=== PATIENT | female | born 1960 | race African-American/Black ===

== ENCOUNTER 2022-08-05 06:43 | Inpatient (IN) ==
[2022-08-05] MEDS ORDERED: methylPREDNISolone SOD SUC 125 MG/2 ML VIAL IV STA (06:52)
[2022-08-05] MEDS ORDERED: ALBUTEROL NEB SOLN 5 MG/ML 20 ML/BOTTLE CONT NEB SCH (07:00)
[2022-08-05 07:21] LABS: Basophils % 0.5 % (0.0-0.8); Eosinophils % 0.3 % (0.00-10.9); Hematocrit 33.7 VOL% (35.7-47.0); Hemoglobin 11.1 GM/DL (12.0-16.0); Immature Granulocytes % 1.1 %; Immature Granulocytes Absolute 0.04 #; Lymphocytes # 1.2 10*3/uL (1.4-4.0); Mean Corpuscular HGB Conc 32.9 GM/DL (32-36); Mean Corpuscular Volume 93.6 FL (87-102); Mean Platelet Volume 10.1 FL (9.6-12.0); Monocytes # 0.6 10*3/uL (0.11-0.8); Monocytes % 15.3 % (1.7-12.7); Neutrophils % 48.8 % (38.7-73.9); Platelet Count 282 T/CUMM (130-400); Red Cell Distribution Width 14.8 % (9.3-17.3); White Blood Count 3.7 T/CUMM (4-12)
[2022-08-05 07:35] LABS: INR 0.9; PT Patient Result 10.4 SECS (10.1-12.1)
[2022-08-05 07:37] LABS: Arterial Base Excess iSTAT 3 MMOL/L (-2.5-2.5); Arterial Bicarbonate iSTAT 24.8 MMOL/L (20-26); Arterial O2 Saturation iSTAT 98 % (95-100); Arterial PCO2 iSTAT 28 MM HG (35-48); Arterial PO2 iSTAT 85 MM HG (80-95); Arterial Total CO2 iSTAT 26 MMO/L (23-27); Arterial pH iSTAT 7.558 (7.35-7.45)
[2022-08-05 07:45] LABS: Albumin 3.1 G/DL (3.4-5.0); Bilirubin,Total 0.5 MG/DL (0.20-1.00); Calcium 8.6 MG/DL (8.5-10.1); Osmolality,Calculated 272.2 MOS/KG (273-304); Total Protein 6.4 G/DL (6.4-8.2)
[2022-08-05] MEDS ORDERED: ALBUTEROL NEB SOLN 5 MG/ML 20 ML/BOTTLE CONT NEB STA (09:33)
[2022-08-05] MEDS ORDERED: ONDANSETRON 4 MG/2 ML VIAL ONE (10:26)
[2022-08-05] MEDS ORDERED: ONDANSETRON 4 MG/2 ML VIAL IV STA (10:30)
[2022-08-05] MEDS ORDERED: DEXTROSE 10% 250 ML BAG IV PRN (11:50)
[2022-08-05] MEDS ORDERED: GLUCAGON 1 MG VIAL IM PRN (11:50)
[2022-08-05] MEDS ORDERED: SODIUM CHLORIDE 0.9% 1,000 ML IV ONE ×2 (11:58→15:47)
[2022-08-05] MEDS: guaiFENesin/DM ER 600-30 MG TABLET PO SCH ×2 (14:07→21:20)
[2022-08-05] MEDS: SODIUM CHLORIDE 0.9% 1,000 ML IV SCH ×2 (14:07→23:00)
[2022-08-05] MEDS: ENOXAPARIN 40 MG/0.4 ML SYRINGE SUBCUT SCH (14:10)
[2022-08-05] MEDS: methylPREDNISolone SOD SUC 40 MG/1 ML VIAL IV SCH ×2 (14:32→21:30)
[2022-08-05] MEDS: ALBUTEROL/IPRATROPIUM 3 ML NEB RESP TX SCH ×2 (14:35→21:27)
[2022-08-05] MEDS: DOXYCYCLINE HYCLATE INJ 100 MG in SODIUM CHLORIDE 0.9% 100 ML IV SCH (14:40)
[2022-08-05] MEDS: GABAPENTIN 300 MG CAPSULE PO SCH ×2 (15:40→22:00)
[2022-08-05] MEDS: BUDESONIDE 0.5 MG/2 ML NEB RESP TX SCH ×2 (16:51→19:46)
[2022-08-05] MEDS ORDERED: ACETAMINOPHEN 325 MG TABLET PO PRN (19:08)
[2022-08-05] MEDS: LEVALBUTEROL 1.25 MG/3 ML NEB RESP TX SCH (19:46)
[2022-08-05] MEDS: IPRATROPIUM 500 MCG/2.5 ML NEB RESP TX SCH (19:46)
[2022-08-05] MEDS: FLUTICASONE PROPION SALMETEROL INH SCH (22:00)
[2022-08-06] MEDS: LEVALBUTEROL 1.25 MG/3 ML NEB RESP TX SCH (00:06)
[2022-08-06] MEDS: IPRATROPIUM 500 MCG/2.5 ML NEB RESP TX SCH (00:06)
[2022-08-06] MEDS: INSULIN REGULAR 100 UNIT/ML SUBCUT SCH ×6 (00:28→21:24)
[2022-08-06] MEDS: ALBUTEROL/IPRATROPIUM 3 ML NEB RESP TX SCH ×4 (00:28→19:00)
[2022-08-06] MEDS: methylPREDNISolone SOD SUC 40 MG/1 ML VIAL IV SCH ×2 (02:20→07:59)
[2022-08-06] MEDS: DOXYCYCLINE HYCLATE INJ 100 MG in SODIUM CHLORIDE 0.9% 100 ML IV SCH ×2 (03:12→14:14)
[2022-08-06] MEDS ORDERED: IPRATROPIUM 500 MCG/2.5 ML NEB RESP TX PRN (03:24)
[2022-08-06 05:50] LABS: Basophils % 0.1 % (0.0-0.8); Hematocrit 33.7 VOL% (35.7-47.0); Hemoglobin 11.2 GM/DL (12.0-16.0); Immature Granulocytes % 0.4 %; Immature Granulocytes Absolute 0.04 #; Lymphocytes # 0.7 10*3/uL (1.4-4.0); Lymphocytes % 7.2 % (21.3-54.2); Mean Corpuscular HGB Conc 33.2 GM/DL (32-36); Mean Corpuscular Volume 93.6 FL (87-102); Mean Platelet Volume 10.2 FL (9.6-12.0); Monocytes # 0.5 10*3/uL (0.11-0.8); Monocytes % 5.1 % (1.7-12.7); Neutrophils % 87.2 % (38.7-73.9); Platelet Count 279 T/CUMM (130-400); Red Cell Distribution Width 14.7 % (9.3-17.3)
[2022-08-06 06:12] LABS: Alanine Aminotransferase 37 U/L (13-56); Alkaline Phosphatase 59 U/L (45-117); Aspartate Amino Transferase 29 U/L (0-37); Bilirubin,Total < 0.39 MG/DL (0.20-1.00); Blood Urea Nitrogen 23 MG/DL (7-18); Calcium 8.5 MG/DL (8.5-10.1); Carbon Dioxide 22 MMOL/L (21-32); Chloride 105 MMOL/L (98-107); Glucose 273 MG/DL (74-106); Osmolality,Calculated 281.2 MOS/KG (273-304); Potassium 3.7 MMOL/L (3.5-5.1); Sodium 134 MMOL/L (136-145); Total Protein 6.6 G/DL (6.4-8.2)
[2022-08-06 06:19] LABS: Risk Ratio 2.57; Thyroid Stimulating Hormone 0.023 uIU/ml (0.358-3.74); VLDL Cholesterol 15.2 MG/DL
[2022-08-06 06:46] LABS: Band Neutrophils 19 % (0-10); Lymphocytes 6 % (20-55); Platelet Estimate Normal; Total Cells Counted 100
[2022-08-06 06:47] LABS: Anisocytosis 1+; Hypochromia Slight; Ovalocytes Few
[2022-08-06] MEDS: SODIUM CHLORIDE 0.9% 1,000 ML IV SCH ×2 (07:00→16:53)
[2022-08-06] MEDS: BUDESONIDE 0.5 MG/2 ML NEB RESP TX SCH ×2 (07:45→19:00)
[2022-08-06] MEDS: ROSUVASTATIN 20 MG TABLET PO SCH (08:00)
[2022-08-06] MEDS: CITALOPRAM 40 MG TABLET PO SCH (08:00)
[2022-08-06] MEDS: GABAPENTIN 300 MG CAPSULE PO SCH ×3 (08:01→21:24)
[2022-08-06] MEDS: PANTOPRAZOLE 40 MG TABLET PO SCH (08:01)
[2022-08-06 08:25] LABS: Free T4 (Free Thyroxine) 1.36 NG/DL (0.76-1.46)
[2022-08-06] MEDS: FLUTICASONE PROPION SALMETEROL INH SCH ×2 (09:08→21:24)
[2022-08-06] MEDS: guaiFENesin/DM ER 600-30 MG TABLET PO SCH ×2 (09:08→21:24)
[2022-08-06] MEDS: LIDOCAINE 5% PATCH TRANSDERM SCH (13:57)
[2022-08-06] MEDS: ENOXAPARIN 40 MG/0.4 ML SYRINGE SUBCUT SCH (13:57)
[2022-08-06] MEDS ORDERED: methylPREDNISolone SOD SUC 40 MG/1 ML VIAL IV SCH (15:30)
[2022-08-06] MEDS: IBUPROFEN 200 MG TABLET PO SCH ×4 (17:17→21:24)
[2022-08-06] MEDS: traMADol 50 MG TABLET PO PRN (23:20)
[2022-08-07] MEDS: ALBUTEROL/IPRATROPIUM 3 ML NEB RESP TX SCH ×5 (00:30→22:45)
[2022-08-07] MEDS: methylPREDNISolone SOD SUC 40 MG/1 ML VIAL IV SCH ×3 (00:37→16:53)
[2022-08-07] MEDS: FLUTICASONE PROPION SALMETEROL INH SCH ×3 (01:02→21:31)
[2022-08-07] MEDS: DOXYCYCLINE HYCLATE INJ 100 MG in SODIUM CHLORIDE 0.9% 100 ML IV SCH ×2 (02:12→14:54)
[2022-08-07 05:06] LABS: Basophils % 0.1 % (0.0-0.8); Hematocrit 32.2 VOL% (35.7-47.0); Hemoglobin 10.5 GM/DL (12.0-16.0); Immature Granulocytes Absolute 0.16 #; Lymphocytes # 1.1 10*3/uL (1.4-4.0); Lymphocytes % 6.6 % (21.3-54.2); Mean Corpuscular HGB Conc 32.6 GM/DL (32-36); Mean Corpuscular Volume 93.9 FL (87-102); Mean Platelet Volume 10.3 FL (9.6-12.0); Monocytes # 0.5 10*3/uL (0.11-0.8); Monocytes % 3.2 % (1.7-12.7); Neutrophils % 89.1 % (38.7-73.9); Platelet Count 276 T/CUMM (130-400); Red Blood Count 3.43 MC/CUMM (3.8-5.5); Red Cell Distribution Width 14.9 % (9.3-17.3); White Blood Count 16.4 T/CUMM (4-12)
[2022-08-07 05:36] LABS: Albumin 2.8 G/DL (3.4-5.0); Bilirubin,Total 0.4 MG/DL (0.20-1.00); Calcium 8.3 MG/DL (8.5-10.1); Osmolality,Calculated 288.7 MOS/KG (273-304); Potassium 4.1 MMOL/L (3.5-5.1); Total Protein 6.2 G/DL (6.4-8.2)
[2022-08-07] MEDS: SODIUM CHLORIDE 0.9% 1,000 ML IV SCH ×3 (07:40→23:11)
[2022-08-07] MEDS: INSULIN REGULAR 100 UNIT/ML SUBCUT SCH ×4 (07:47→21:30)
[2022-08-07] MEDS: LIDOCAINE 5% PATCH TRANSDERM SCH (08:51)
[2022-08-07] MEDS: CITALOPRAM 40 MG TABLET PO SCH (08:52)
[2022-08-07] MEDS: IBUPROFEN 200 MG TABLET PO SCH ×4 (08:52→21:30)
[2022-08-07] MEDS: PANTOPRAZOLE 40 MG TABLET PO SCH (08:52)
[2022-08-07] MEDS: GABAPENTIN 300 MG CAPSULE PO SCH ×3 (08:52→21:30)
[2022-08-07] MEDS: guaiFENesin/DM ER 600-30 MG TABLET PO SCH ×2 (08:52→21:30)
[2022-08-07] MEDS: ROSUVASTATIN 20 MG TABLET PO SCH (08:56)
[2022-08-07] MEDS: ENOXAPARIN 40 MG/0.4 ML SYRINGE SUBCUT SCH (12:27)
[2022-08-07] MEDS: BUDESONIDE 0.5 MG/2 ML NEB RESP TX SCH ×2 (13:00→19:05)
[2022-08-07] MEDS: MONTELUKAST 10 MG TABLET PO SCH (21:30)
[2022-08-07] MEDS: INSULIN GLARGINE 100 UNIT/ML SUBCUT SCH (21:30)
[2022-08-08] MEDS: methylPREDNISolone SOD SUC 40 MG/1 ML VIAL IV SCH ×3 (00:23→16:34)
[2022-08-08] MEDS: DOXYCYCLINE HYCLATE INJ 100 MG in SODIUM CHLORIDE 0.9% 100 ML IV SCH ×2 (01:06→14:23)
[2022-08-08] MEDS: ONDANSETRON 4 MG/2 ML VIAL IV PRN (03:44)
[2022-08-08] MEDS: ALBUTEROL/IPRATROPIUM 3 ML NEB RESP TX SCH ×6 (03:50→22:20)
[2022-08-08 05:14] LABS: Basophils % 0.1 % (0.0-0.8); Hemoglobin 10.6 GM/DL (12.0-16.0); Immature Granulocytes % 1.4 %; Immature Granulocytes Absolute 0.17 #; Lymphocytes % 8.9 % (21.3-54.2); Mean Corpuscular HGB Conc 32.1 GM/DL (32-36); Mean Corpuscular Volume 94.3 FL (87-102); Mean Platelet Volume 10.3 FL (9.6-12.0); Monocytes # 0.4 10*3/uL (0.11-0.8); Monocytes % 3.2 % (1.7-12.7); Neutrophils % 86.4 % (38.7-73.9); Platelet Count 261 T/CUMM (130-400); Red Cell Distribution Width 15.1 % (9.3-17.3); White Blood Count 11.7 T/CUMM (4-12)
[2022-08-08 05:44] LABS: Alanine Aminotransferase 35 U/L (13-56); Albumin 2.7 G/DL (3.4-5.0); Alkaline Phosphatase 50 U/L (45-117); Aspartate Amino Transferase 25 U/L (0-37); Bilirubin,Total < 0.39 MG/DL (0.20-1.00); Blood Urea Nitrogen 33 MG/DL (7-18); Calcium 8.5 MG/DL (8.5-10.1); Carbon Dioxide 22 MMOL/L (21-32); Chloride 109 MMOL/L (98-107); Glucose 237 MG/DL (74-106); Osmolality,Calculated 293.4 MOS/KG (273-304); Sodium 140 MMOL/L (136-145)
[2022-08-08] MEDS: BUDESONIDE 0.5 MG/2 ML NEB RESP TX SCH ×2 (07:09→19:05)
[2022-08-08] MEDS: INSULIN REGULAR 100 UNIT/ML SUBCUT SCH ×4 (08:41→21:16)
[2022-08-08] MEDS: LIDOCAINE 5% PATCH TRANSDERM SCH (08:43)
[2022-08-08] MEDS: ROSUVASTATIN 20 MG TABLET PO SCH (08:45)
[2022-08-08] MEDS: PANTOPRAZOLE 40 MG TABLET PO SCH (08:45)
[2022-08-08] MEDS: GABAPENTIN 300 MG CAPSULE PO SCH ×3 (08:45→21:16)
[2022-08-08] MEDS: MONTELUKAST 10 MG TABLET PO SCH ×2 (08:45→21:16)
[2022-08-08] MEDS: CITALOPRAM 40 MG TABLET PO SCH (08:45)
[2022-08-08] MEDS: guaiFENesin/DM ER 600-30 MG TABLET PO SCH ×2 (08:45→21:16)
[2022-08-08] MEDS: FLUTICASONE PROPION SALMETEROL INH SCH ×2 (08:46→21:14)
[2022-08-08] MEDS: IBUPROFEN 200 MG TABLET PO SCH ×4 (08:49→21:16)
[2022-08-08] MEDS: traMADol 50 MG TABLET PO PRN (09:43)
[2022-08-08] MEDS: ENOXAPARIN 40 MG/0.4 ML SYRINGE SUBCUT SCH (12:10)
[2022-08-08 12:36] LABS: % CD4 (T Cells) 23 % (32-64); % CD8 (T Cells) 50 % (8-40); 4/8 Ratio 0.5 (>=0.9)
[2022-08-08] MEDS: ROFLUMILAST 500 MCG TABLET PO SCH (15:27)
[2022-08-08] MEDS: SODIUM CHLORIDE 0.9% 1,000 ML IV SCH (17:00)
[2022-08-08] MEDS: INSULIN GLARGINE 100 UNIT/ML SUBCUT SCH (21:17)
[2022-08-09] MEDS: methylPREDNISolone SOD SUC 40 MG/1 ML VIAL IV SCH ×3 (01:22→17:56)
[2022-08-09] MEDS: DOXYCYCLINE HYCLATE INJ 100 MG in SODIUM CHLORIDE 0.9% 100 ML IV SCH ×2 (01:24→15:51)
[2022-08-09] MEDS: ALBUTEROL/IPRATROPIUM 3 ML NEB RESP TX SCH ×6 (03:20→23:01)
[2022-08-09 05:28] LABS: Basophils % 0.1 % (0.0-0.8); Hematocrit 32.4 VOL% (35.7-47.0); Hemoglobin 10.5 GM/DL (12.0-16.0); Immature Granulocytes % 4.9 %; Immature Granulocytes Absolute 0.44 #; Lymphocytes # 0.8 10*3/uL (1.4-4.0); Lymphocytes % 9.2 % (21.3-54.2); Mean Corpuscular HGB Conc 32.4 GM/DL (32-36); Mean Corpuscular Volume 93.1 FL (87-102); Mean Platelet Volume 10.3 FL (9.6-12.0); Monocytes # 0.4 10*3/uL (0.11-0.8); Monocytes % 4.8 % (1.7-12.7); Platelet Count 256 T/CUMM (130-400); Red Blood Count 3.48 MC/CUMM (3.8-5.5); Red Cell Distribution Width 14.7 % (9.3-17.3); White Blood Count 9.1 T/CUMM (4-12)
[2022-08-09 05:53] LABS: Alanine Aminotransferase 32 U/L (13-56); Albumin 2.6 G/DL (3.4-5.0); Alkaline Phosphatase 50 U/L (45-117); Aspartate Amino Transferase 17 U/L (0-37); Bilirubin,Total < 0.39 MG/DL (0.20-1.00); Blood Urea Nitrogen 27 MG/DL (7-18); Calcium 8.3 MG/DL (8.5-10.1); Carbon Dioxide 22 MMOL/L (21-32); Chloride 110 MMOL/L (98-107); Glucose 237 MG/DL (74-106); Osmolality,Calculated 293.3 MOS/KG (273-304); Potassium 3.9 MMOL/L (3.5-5.1); Sodium 141 MMOL/L (136-145); Total Protein 5.8 G/DL (6.4-8.2)
[2022-08-09] MEDS: BUDESONIDE 0.5 MG/2 ML NEB RESP TX SCH ×2 (07:10→19:25)
[2022-08-09] MEDS: INSULIN REGULAR 100 UNIT/ML SUBCUT SCH ×4 (10:10→21:08)
[2022-08-09] MEDS: ROFLUMILAST 500 MCG TABLET PO SCH (10:12)
[2022-08-09] MEDS: GABAPENTIN 300 MG CAPSULE PO SCH ×3 (10:12→21:08)
[2022-08-09] MEDS: IBUPROFEN 200 MG TABLET PO SCH ×4 (10:12→21:08)
[2022-08-09] MEDS: PANTOPRAZOLE 40 MG TABLET PO SCH (10:12)
[2022-08-09] MEDS: MONTELUKAST 10 MG TABLET PO SCH ×2 (10:12→21:08)
[2022-08-09] MEDS: guaiFENesin/DM ER 600-30 MG TABLET PO SCH ×2 (10:12→21:08)
[2022-08-09] MEDS: ROSUVASTATIN 20 MG TABLET PO SCH (10:12)
[2022-08-09] MEDS: CITALOPRAM 40 MG TABLET PO SCH (10:12)
[2022-08-09] MEDS: LIDOCAINE 5% PATCH TRANSDERM SCH (10:18)
[2022-08-09] MEDS: FLUTICASONE PROPION SALMETEROL INH SCH ×2 (10:18→21:28)
[2022-08-09] MEDS: ENOXAPARIN 40 MG/0.4 ML SYRINGE SUBCUT SCH (11:27)
[2022-08-09] MEDS: SODIUM CHLORIDE 0.9% 1,000 ML IV SCH (15:00)
[2022-08-09] MEDS: FLUCONAZOLE 200 MG TABLET PO SCH (17:55)
[2022-08-09] MEDS: NYSTATIN 500,000 UNIT/5 ML UDCUP SWISH/SWAL SCH ×2 (17:56→21:08)
[2022-08-09] MEDS: INSULIN GLARGINE 100 UNIT/ML SUBCUT SCH (21:09)
[2022-08-10] MEDS: methylPREDNISolone SOD SUC 40 MG/1 ML VIAL IV SCH ×3 (01:05→16:09)
[2022-08-10] MEDS: DOXYCYCLINE HYCLATE INJ 100 MG in SODIUM CHLORIDE 0.9% 100 ML IV SCH ×2 (01:07→20:56)
[2022-08-10] MEDS: ALBUTEROL/IPRATROPIUM 3 ML NEB RESP TX SCH ×6 (02:49→23:35)
[2022-08-10 05:56] LABS: Basophils % 0.2 % (0.0-0.8); Hematocrit 32.8 VOL% (35.7-47.0); Hemoglobin 10.8 GM/DL (12.0-16.0); Immature Granulocytes % 5.9 %; Immature Granulocytes Absolute 0.55 #; Lymphocytes # 0.9 10*3/uL (1.4-4.0); Lymphocytes % 9.9 % (21.3-54.2); Mean Corpuscular HGB Conc 32.9 GM/DL (32-36); Mean Corpuscular Volume 92.1 FL (87-102); Mean Platelet Volume 10.7 FL (9.6-12.0); Monocytes # 0.6 10*3/uL (0.11-0.8); Monocytes % 6.2 % (1.7-12.7); Neutrophils % 77.8 % (38.7-73.9); Platelet Count 282 T/CUMM (130-400); Red Blood Count 3.56 MC/CUMM (3.8-5.5); Red Cell Distribution Width 14.6 % (9.3-17.3); White Blood Count 9.4 T/CUMM (4-12)
[2022-08-10 06:24] LABS: Alanine Aminotransferase 30 U/L (13-56); Albumin 2.7 G/DL (3.4-5.0); Alkaline Phosphatase 45 U/L (45-117); Aspartate Amino Transferase 18 U/L (0-37); Bilirubin,Total < 0.39 MG/DL (0.20-1.00); Blood Urea Nitrogen 27 MG/DL (7-18); Calcium 8.5 MG/DL (8.5-10.1); Carbon Dioxide 23 MMOL/L (21-32); Chloride 109 MMOL/L (98-107); Glucose 236 MG/DL (74-106); Osmolality,Calculated 289.5 MOS/KG (273-304); Potassium 3.9 MMOL/L (3.5-5.1); Sodium 139 MMOL/L (136-145); Total Protein 5.6 G/DL (6.4-8.2)
[2022-08-10 06:26] LABS: Band Neutrophils 2 % (0-10); Lymphocytes 12 % (20-55); Platelet Estimate Adequate; Total Cells Counted 100
[2022-08-10] MEDS: BUDESONIDE 0.5 MG/2 ML NEB RESP TX SCH ×2 (07:25→19:24)
[2022-08-10] MEDS: PANTOPRAZOLE 40 MG TABLET PO SCH (09:04)
[2022-08-10] MEDS: LIDOCAINE 5% PATCH TRANSDERM SCH (09:04)
[2022-08-10] MEDS: ROSUVASTATIN 20 MG TABLET PO SCH (09:04)
[2022-08-10] MEDS: INSULIN REGULAR 100 UNIT/ML SUBCUT SCH ×4 (09:04→20:57)
[2022-08-10] MEDS: NYSTATIN 500,000 UNIT/5 ML UDCUP SWISH/SWAL SCH ×4 (09:04→20:55)
[2022-08-10] MEDS: guaiFENesin/DM ER 600-30 MG TABLET PO SCH ×2 (09:04→20:55)
[2022-08-10] MEDS: FLUCONAZOLE 200 MG TABLET PO SCH (09:05)
[2022-08-10] MEDS: MONTELUKAST 10 MG TABLET PO SCH ×2 (09:05→20:55)
[2022-08-10] MEDS: ROFLUMILAST 500 MCG TABLET PO SCH (09:05)
[2022-08-10] MEDS: IBUPROFEN 200 MG TABLET PO SCH ×4 (09:05→20:55)
[2022-08-10] MEDS: GABAPENTIN 300 MG CAPSULE PO SCH ×3 (09:05→20:55)
[2022-08-10] MEDS: FLUTICASONE PROPION SALMETEROL INH SCH ×2 (09:07→21:04)
[2022-08-10] MEDS: SODIUM CHLORIDE 0.9% 1,000 ML IV SCH (12:45)
[2022-08-10] MEDS ORDERED: POLYETHYLENE GLYCOL POWDER 17 GM PACK PO PRN (14:50)
[2022-08-10] MEDS: ENOXAPARIN 40 MG/0.4 ML SYRINGE SUBCUT SCH (20:56)
[2022-08-10] MEDS: INSULIN GLARGINE 100 UNIT/ML SUBCUT SCH (20:57)
[2022-08-11] MEDS: methylPREDNISolone SOD SUC 40 MG/1 ML VIAL IV SCH ×4 (00:11→16:15)
[2022-08-11] MEDS: ALBUTEROL/IPRATROPIUM 3 ML NEB RESP TX SCH ×6 (02:47→23:56)
[2022-08-11] MEDS ORDERED: MEPERIDINE 50 MG/1 ML VIAL IM ONE (07:00)
[2022-08-11] MEDS ORDERED: PROMETHAZINE 25 MG/1 ML VIAL IM ONE (07:00)
[2022-08-11] MEDS ORDERED: MIDAZOLAM 2 MG/2 ML VIAL IV ONE (07:30)
[2022-08-11] MEDS ORDERED: LIDOCAINE 2% VISCOUS 100 ML BOTTLE SWISH/SPIT ONE (07:30)
[2022-08-11] MEDS ORDERED: LIDOCAINE 1% 20 ML VIAL MISC INJ ONE (07:30)
[2022-08-11] MEDS ORDERED: LIDOCAINE 2% 20 ML VIAL RESP TX ONE (07:30)
[2022-08-11] MEDS ORDERED: FUROSEMIDE 40 MG/4 ML VIAL IV ONE (07:57)
[2022-08-11] MEDS: DOXYCYCLINE HYCLATE INJ 100 MG in SODIUM CHLORIDE 0.9% 100 ML IV SCH ×2 (10:43→21:18)
[2022-08-11] MEDS: INSULIN REGULAR 100 UNIT/ML SUBCUT SCH ×2 (10:44→13:25)
[2022-08-11] MEDS: ROFLUMILAST 500 MCG TABLET PO SCH (10:45)
[2022-08-11] MEDS: MONTELUKAST 10 MG TABLET PO SCH ×2 (10:45→21:18)
[2022-08-11] MEDS: DILTIAZEM 60 MG TABLET PO SCH ×3 (10:45→21:17)
[2022-08-11] MEDS: NYSTATIN 500,000 UNIT/5 ML UDCUP SWISH/SWAL SCH ×4 (10:45→21:18)
[2022-08-11] MEDS: guaiFENesin/DM ER 600-30 MG TABLET PO SCH ×2 (10:45→21:18)
[2022-08-11] MEDS: PANTOPRAZOLE 40 MG TABLET PO SCH (10:45)
[2022-08-11] MEDS: ROSUVASTATIN 20 MG TABLET PO SCH (10:45)
[2022-08-11] MEDS: FLUCONAZOLE 200 MG TABLET PO SCH (10:45)
[2022-08-11] MEDS: GABAPENTIN 300 MG CAPSULE PO SCH ×3 (10:45→21:18)
[2022-08-11] MEDS: IBUPROFEN 200 MG TABLET PO SCH ×2 (10:45→13:25)
[2022-08-11] MEDS: FLUTICASONE PROPION SALMETEROL INH SCH ×2 (10:46→21:20)
[2022-08-11] MEDS: LIDOCAINE 5% PATCH TRANSDERM SCH (10:47)
[2022-08-11] MEDS: BUDESONIDE 0.5 MG/2 ML NEB RESP TX SCH ×3 (11:17→19:00)
[2022-08-11] MEDS ORDERED: GLUCAGON 1 MG VIAL IM PRN (12:33)
[2022-08-11] MEDS ORDERED: DEXTROSE 50% 25 GM/50 ML VIAL IV PRN (12:33)
[2022-08-11] MEDS ORDERED: IBUPROFEN 200 MG TABLET PO PRN (14:30)
[2022-08-11] MEDS ORDERED: LIDOCAINE 5% PATCH TRANSDERM PRN (14:30)
[2022-08-11] MEDS: INSULIN LISPRO 100 UNIT/ML SUBCUT SCH ×2 (16:09→22:22)
[2022-08-11] MEDS ORDERED: INSULIN GLARGINE 100 UNIT/ML SUBCUT SCH (21:00)
[2022-08-11] MEDS: ENOXAPARIN 40 MG/0.4 ML SYRINGE SUBCUT SCH (21:30)
[2022-08-12] MEDS: ALBUTEROL/IPRATROPIUM 3 ML NEB RESP TX SCH ×5 (03:55→19:15)
[2022-08-12 05:12] LABS: Basophils # 0.1 10*3/uL (0.0-0.2); Basophils % 0.5 % (0.0-0.8); Eosinophils # 0.1 10*3/uL (0.0-0.87); Eosinophils % 0.7 % (0.00-10.9); Hematocrit 32.1 VOL% (35.7-47.0); Hemoglobin 10.9 GM/DL (12.0-16.0); Immature Granulocytes % 9.7 %; Immature Granulocytes Absolute 1.28 #; Lymphocytes # 0.9 10*3/uL (1.4-4.0); Lymphocytes % 6.7 % (21.3-54.2); Mean Corpuscular Volume 90.4 FL (87-102); Mean Platelet Volume 10.5 FL (9.6-12.0); Monocytes # 0.8 10*3/uL (0.11-0.8); Monocytes % 6.3 % (1.7-12.7); Neutrophils % 76.1 % (38.7-73.9); Platelet Count 293 T/CUMM (130-400); Red Blood Count 3.55 MC/CUMM (3.8-5.5); Red Cell Distribution Width 14.6 % (9.3-17.3); White Blood Count 13.2 T/CUMM (4-12)
[2022-08-12 05:38] LABS: Lymphocytes 4 % (20-55); Platelet Estimate Adequate; Total Cells Counted 100
[2022-08-12 05:40] LABS: Calcium 8.7 MG/DL (8.5-10.1); Osmolality,Calculated 291.5 MOS/KG (273-304); Potassium 3.1 MMOL/L (3.5-5.1)
[2022-08-12] MEDS: BUDESONIDE 0.5 MG/2 ML NEB RESP TX SCH ×2 (07:05→19:15)
[2022-08-12] MEDS: NYSTATIN 500,000 UNIT/5 ML UDCUP SWISH/SWAL SCH ×4 (08:26→21:28)
[2022-08-12] MEDS: guaiFENesin/DM ER 600-30 MG TABLET PO SCH ×2 (08:28→21:08)
[2022-08-12] MEDS: GABAPENTIN 300 MG CAPSULE PO SCH ×3 (08:29→21:08)
[2022-08-12] MEDS: DILTIAZEM 60 MG TABLET PO SCH ×3 (08:29→21:08)
[2022-08-12] MEDS: FLUCONAZOLE 200 MG TABLET PO SCH (08:31)
[2022-08-12] MEDS: PANTOPRAZOLE 40 MG TABLET PO SCH (08:31)
[2022-08-12] MEDS: INSULIN LISPRO 100 UNIT/ML SUBCUT SCH ×4 (08:34→21:09)
[2022-08-12] MEDS: methylPREDNISolone SOD SUC 40 MG/1 ML VIAL IV SCH ×2 (08:36→21:09)
[2022-08-12] MEDS: DOXYCYCLINE HYCLATE INJ 100 MG in SODIUM CHLORIDE 0.9% 100 ML IV SCH ×2 (08:40→21:05)
[2022-08-12] MEDS: ROSUVASTATIN 20 MG TABLET PO SCH (08:44)
[2022-08-12] MEDS: FLUTICASONE PROPION SALMETEROL INH SCH ×2 (08:45→21:28)
[2022-08-12] MEDS: POTASSIUM CHLORIDE 20 MEQ TABLET PO SCH ×3 (12:15→14:23)
[2022-08-12] MEDS ORDERED: INSULIN LISPRO 100 UNIT/ML SUBCUT ONE (13:49)
[2022-08-12] MEDS: INSULIN GLARGINE 100 UNIT/ML SUBCUT SCH ×2 (17:50→21:10)
[2022-08-12] MEDS: ENOXAPARIN 40 MG/0.4 ML SYRINGE SUBCUT SCH (21:08)
[2022-08-12] MEDS: MONTELUKAST 10 MG TABLET PO SCH (21:08)
[2022-08-13] MEDS: ALBUTEROL/IPRATROPIUM 3 ML NEB RESP TX SCH ×7 (00:20→22:30)
[2022-08-13] MEDS: SODIUM CHLORIDE 0.9% 1,000 ML IV SCH (00:28)
[2022-08-13] MEDS: ONDANSETRON 4 MG/2 ML VIAL IV PRN (04:06)
[2022-08-13 05:11] LABS: Basophils % 0.2 % (0.0-0.8); Eosinophils % 0.2 % (0.00-10.9); Hematocrit 33.5 VOL% (35.7-47.0); Immature Granulocytes % 12.7 %; Immature Granulocytes Absolute 2.16 #; Lymphocytes % 5.9 % (21.3-54.2); Mean Corpuscular HGB Conc 32.8 GM/DL (32-36); Mean Corpuscular Volume 90.8 FL (87-102); Mean Platelet Volume 10.3 FL (9.6-12.0); Monocytes # 0.9 10*3/uL (0.11-0.8); Monocytes % 5.2 % (1.7-12.7); NRBC # 0.02 10*3/uL; Neutrophils % 75.8 % (38.7-73.9); Platelet Count 279 T/CUMM (130-400); Red Blood Count 3.69 MC/CUMM (3.8-5.5); Red Cell Distribution Width 14.6 % (9.3-17.3)
[2022-08-13 05:44] LABS: Band Neutrophils 3 % (0-10); Lymphocytes 5 % (20-55); Microcytosis Slight; Ovalocytes Slight; Target Cells Slight; Total Cells Counted 100
[2022-08-13 05:47] LABS: Calcium 8.9 MG/DL (8.5-10.1); Osmolality,Calculated 290.7 MOS/KG (273-304); Potassium 3.7 MMOL/L (3.5-5.1)
[2022-08-13] MEDS: BUDESONIDE 0.5 MG/2 ML NEB RESP TX SCH ×2 (07:40→19:41)
[2022-08-13] MEDS: guaiFENesin/DM ER 600-30 MG TABLET PO SCH ×2 (09:09→20:37)
[2022-08-13] MEDS: GABAPENTIN 300 MG CAPSULE PO SCH ×3 (09:09→20:37)
[2022-08-13] MEDS: NYSTATIN 500,000 UNIT/5 ML UDCUP SWISH/SWAL SCH ×4 (09:10→20:37)
[2022-08-13] MEDS: PANTOPRAZOLE 40 MG TABLET PO SCH (09:10)
[2022-08-13] MEDS: FLUCONAZOLE 200 MG TABLET PO SCH (09:10)
[2022-08-13] MEDS: ROSUVASTATIN 20 MG TABLET PO SCH (09:10)
[2022-08-13] MEDS: FLUTICASONE PROPION SALMETEROL INH SCH ×2 (09:12→20:39)
[2022-08-13] MEDS: methylPREDNISolone SOD SUC 40 MG/1 ML VIAL IV SCH (09:15)
[2022-08-13] MEDS: DILTIAZEM 60 MG TABLET PO SCH ×3 (09:24→20:37)
[2022-08-13] MEDS: INSULIN LISPRO 100 UNIT/ML SUBCUT SCH ×4 (09:26→20:38)
[2022-08-13] MEDS: INSULIN GLARGINE 100 UNIT/ML SUBCUT SCH ×2 (09:27→20:38)
[2022-08-13] MEDS: LEVOFLOXACIN 500 MG TABLET PO SCH (12:19)
[2022-08-13] MEDS: traMADol 50 MG TABLET PO PRN (12:20)
[2022-08-13] MEDS: ENOXAPARIN 40 MG/0.4 ML SYRINGE SUBCUT SCH (20:37)
[2022-08-13] MEDS: MONTELUKAST 10 MG TABLET PO SCH (20:37)
[2022-08-14] MEDS: ONDANSETRON 4 MG/2 ML VIAL IV PRN (02:14)
[2022-08-14] MEDS: ALBUTEROL/IPRATROPIUM 3 ML NEB RESP TX SCH ×6 (03:50→23:32)
[2022-08-14 06:00] LABS: Basophils # 0.1 10*3/uL (0.0-0.2); Basophils % 0.3 % (0.0-0.8); Hematocrit 31.3 VOL% (35.7-47.0); Hemoglobin 10.3 GM/DL (12.0-16.0); Immature Granulocytes % 14.5 %; Immature Granulocytes Absolute 2.59 #; Lymphocytes # 1.1 10*3/uL (1.4-4.0); Lymphocytes % 6.3 % (21.3-54.2); Mean Corpuscular HGB Conc 32.9 GM/DL (32-36); Mean Platelet Volume 10.2 FL (9.6-12.0); Monocytes # 1.1 10*3/uL (0.11-0.8); Monocytes % 6.2 % (1.7-12.7); NRBC # 0.03 10*3/uL; Neutrophils % 72.7 % (38.7-73.9); Platelet Count 246 T/CUMM (130-400); Red Blood Count 3.44 MC/CUMM (3.8-5.5); Red Cell Distribution Width 14.8 % (9.3-17.3); White Blood Count 17.9 T/CUMM (4-12)
[2022-08-14 06:17] LABS: Calcium 8.7 MG/DL (8.5-10.1); Osmolality,Calculated 291.3 MOS/KG (273-304); Potassium 4.3 MMOL/L (3.5-5.1)
[2022-08-14 06:37] LABS: Lymphocytes 4 % (20-55); Platelet Estimate Adequate; Total Cells Counted 100
[2022-08-14 06:38] LABS: Microcytosis Slight
[2022-08-14] MEDS: BUDESONIDE 0.5 MG/2 ML NEB RESP TX SCH ×2 (07:37→19:45)
[2022-08-14] MEDS: DILTIAZEM 60 MG TABLET PO SCH ×3 (08:26→20:56)
[2022-08-14] MEDS: ROSUVASTATIN 20 MG TABLET PO SCH (08:26)
[2022-08-14] MEDS: guaiFENesin/DM ER 600-30 MG TABLET PO SCH ×2 (08:27→20:55)
[2022-08-14] MEDS: NYSTATIN 500,000 UNIT/5 ML UDCUP SWISH/SWAL SCH ×4 (08:27→20:56)
[2022-08-14] MEDS: predniSONE 20 MG TABLET PO SCH (08:27)
[2022-08-14] MEDS: LEVOFLOXACIN 500 MG TABLET PO SCH (08:27)
[2022-08-14] MEDS: GABAPENTIN 300 MG CAPSULE PO SCH ×3 (08:27→20:55)
[2022-08-14] MEDS: PANTOPRAZOLE 40 MG TABLET PO SCH (08:27)
[2022-08-14] MEDS: INSULIN LISPRO 100 UNIT/ML SUBCUT SCH ×4 (08:28→20:56)
[2022-08-14] MEDS: INSULIN GLARGINE 100 UNIT/ML SUBCUT SCH (08:29)
[2022-08-14] MEDS: FLUTICASONE PROPION SALMETEROL INH SCH ×2 (08:31→20:56)
[2022-08-14] MEDS ORDERED: INSULIN GLARGINE 100 UNIT/ML SUBCUT SCH ×2 (09:00→21:00)
[2022-08-14] MEDS: MONTELUKAST 10 MG TABLET PO SCH (20:55)
[2022-08-14] MEDS: ENOXAPARIN 40 MG/0.4 ML SYRINGE SUBCUT SCH (20:56)
[2022-08-15] MEDS: ALBUTEROL/IPRATROPIUM 3 ML NEB RESP TX SCH ×3 (03:48→11:25)
[2022-08-15 06:53] LABS: Basophils # 0.1 10*3/uL (0.0-0.2); Basophils % 0.5 % (0.0-0.8); Hematocrit 31.7 VOL% (35.7-47.0); Hemoglobin 10.5 GM/DL (12.0-16.0); Immature Granulocytes % 12.3 %; Immature Granulocytes Absolute 1.81 #; Lymphocytes # 1.2 10*3/uL (1.4-4.0); Lymphocytes % 7.8 % (21.3-54.2); Mean Corpuscular HGB Conc 33.1 GM/DL (32-36); Mean Corpuscular Volume 91.6 FL (87-102); Monocytes # 0.9 10*3/uL (0.11-0.8); Monocytes % 5.9 % (1.7-12.7); NRBC # 0.03 10*3/uL; Neutrophils % 73.5 % (38.7-73.9); Platelet Count 210 T/CUMM (130-400); Red Blood Count 3.46 MC/CUMM (3.8-5.5); Red Cell Distribution Width 15.1 % (9.3-17.3); White Blood Count 14.7 T/CUMM (4-12)
[2022-08-15 07:09] LABS: Calcium 8.7 MG/DL (8.5-10.1); Osmolality,Calculated 286.5 MOS/KG (273-304); Potassium 3.7 MMOL/L (3.5-5.1)
[2022-08-15 07:40] LABS: Lymphocytes 6 % (20-55); Platelet Estimate Adequate; Total Cells Counted 100
[2022-08-15] MEDS: BUDESONIDE 0.5 MG/2 ML NEB RESP TX SCH (08:00)
[2022-08-15] MEDS: INSULIN LISPRO 100 UNIT/ML SUBCUT SCH ×2 (09:21→12:30)
[2022-08-15] MEDS: INSULIN GLARGINE 100 UNIT/ML SUBCUT SCH (09:22)
[2022-08-15] MEDS: guaiFENesin/DM ER 600-30 MG TABLET PO SCH (09:22)
[2022-08-15] MEDS: predniSONE 20 MG TABLET PO SCH (09:23)
[2022-08-15] MEDS: DILTIAZEM 60 MG TABLET PO SCH ×2 (09:23→14:53)
[2022-08-15] MEDS: ROSUVASTATIN 20 MG TABLET PO SCH (09:23)
[2022-08-15] MEDS: PANTOPRAZOLE 40 MG TABLET PO SCH (09:24)
[2022-08-15] MEDS: GABAPENTIN 300 MG CAPSULE PO SCH ×2 (09:24→14:53)
[2022-08-15] MEDS: LEVOFLOXACIN 500 MG TABLET PO SCH (09:24)
[2022-08-15] MEDS: FLUTICASONE PROPION SALMETEROL INH SCH (09:28)
[2022-08-15] MEDS: NYSTATIN 500,000 UNIT/5 ML UDCUP SWISH/SWAL SCH ×2 (09:29→13:35)
[2022-08-15 10:45] LABS: % Iron Saturation 30.3 % (18-50)
[2022-08-15 10:52] LABS: Folate 10.92 NG/ML (5.38-24.0)
[2022-08-15 12:36] LABS: Pneumocystis jiroveci Result Negative (Negative); Pneumocystis jiroveci Source BRONCH WASH
[2022-08-15] MEDS ORDERED: INFLUENZA VIRUS VACCINE 0.5 ML SYRINGE IM ONE (14:37)
[2022-08-15 14:56] VITALS: BP 137/60
== END 2022-08-15 16:00 | disposition home health service (06) | DRG 141 ==
LOC: EDBD → EDUNIT# → N.EDINP 06:43 → N.2W 06:43 → N.ED 06:43 → SUATTDRO 11:50 → N.2W 16:24 → SUATTDRO 08-06 16:45 → N.5E 08-06 17:56
PROVIDERS: ADMIT Family Medicine; ATTEND Internal Medicine